=== PATIENT | female | born 1995 | race Caucasian/White ===

== ENCOUNTER → 2020-02-18 11:50 | Outpatient (CLI) | payer OTHER, SELFPAY ==
[2020-02-19 22:06] LABS: COVID19 Sendout Not Detected (Not Detect)
== END ==
PROVIDERS: Visit Provider Physician Assistant
DX: Z11.59 Encounter for screening for other viral diseases (principal)
CPT/HCPCS: 87635

== ENCOUNTER 2020-02-21 10:18 | Day surgery (SDC) | payer OTHER, SELFPAY ==
--- NOTE | 2020-02-21 | PATH_ITS ---
[facility] Accession Number: [id number] . 01 Material submitted: . PART A: small bowel - SMALL BOWEL BX PART B: gastrointestinal site - GASTRIC BX . 02 Diagnosis: A. Small Bowel, Biopsy: Duodenal mucosa with no diagnostic abnormality. Negative for active inflammation, features of sprue, dysplasia, or malignancy. . B. Stomach, Biopsies: Antral mucosa with mild chronic gastritis. Negative for Helicobacter by immunohistochemistry. Negative for intestinal metaplasia. Negative for dysplasia and malignancy. MRV 02/26/2020 1422 Local . 02 Electronically signed: . Regina Soriano MD, Pathologist NPI- [id number] . 01 Gross description: . Part A: SMALL BOWEL BX: Received in formalin are 3 fragment(s) of [place], soft tissue measuring 0.3 x 0.2 x 0.2 cm to 0.2 x 0.2 x 0.2 cm submitted entirely in 1 cassette(s) Part B: GASTRIC BX: Received in formalin are 3 fragment(s) of [place], soft tissue measuring 0.4 x 0.2 x 0.1 cm to 0.1 x 0.1 x 0.1 cm submitted entirely in 1 cassette(s) /QBJ 02/22/2020 0256 Local . 02 Microscopic: . B. An immunohistochemical stain was performed to evaluate for Helicobacter organisms and is negative. The control stain showed appropriate reactivity. . * This test was developed and its performance characteristics determined by [employer]. It has not been cleared or approved by the [place]. Food and Drug Administration. The FDA has determined that such clearance or approval is not necessary. This test is used for clinical purposes. It should not be regarded as investigational or for research. . 02 Pathologist provided ICD-10: R10.9 . 02 CPT . 960862, 846708, [id number] Performed at: 01 [facility] [address] [place] [address], [place], [place] [id number] MD Clay Maki MD Phone: [phone] Performed at: 02 [facility] [address] [place], [place] [id number] MD Regina Soriano MD Phone: [phone]
[2020-02-21 11:25] VITALS: BMI 28.1
[2020-02-21] MEDS: SODIUM CHLORIDE 0.9% 1,000 ML 70 ML IV (11:25)
--- NOTE | 2020-02-21 11:26 | PM.HP.1 ---
History of Present Illness History of Present Illness Date Patient Seen: 02/21/20 Time Patient Seen: 11:27 Chief complaint: EGD W/POSS BX Narrative: Patient is a 24 year old female who presented for EGD. Last seen 02/01/2020. Denies changes to symptoms, medications or history since that time. Review of Systems Review of Systems ROS: Yes All systems reviewed with the patient and are negative except as otherwise documented Exam Const General: cooperative, healthy appearing, comfortable, well developed, well groomed and No acute distress Orientation: alert and awake HENGA Head: normocephalic and atraumatic Resp Effort & Inspection: normal respiratory effort and able to speak in complete sentences Auscultation: clear to auscultation bilaterally Cardio Rate: regular rate Rhythm: regular rhythm Heart Sounds: S1 normal and S2 normal GI Palpation: soft Auscultation: normal bowel sounds Extrem Right lower extremity: no edema Left lower extremity: no edema Assessment & Plan Assessment & Plan narrative: 1. Early satiety 2. Bloating 3. Abdominal pain 4. Nausea - EGD today, further recommendations to follow
[2020-02-21 11:31] VITALS: BP 122/72; PULSE 88; RESP 14; TEMP 36.9; O2SAT 99
[2020-02-21] MEDS: LIDOCAINE 4% SOLN 50 ML 20 ML TOP (11:40)
[2020-02-21] MEDS: MIDAZOLAM 5 MG/5 ML VIAL IV ×3 (11:41→11:48)
[2020-02-21] MEDS: fentaNYL 250 MCG/5 ML INJ IV ×2 (11:42→11:45)
--- NOTE | 2020-02-21 11:54 | PM.OP.ENDO ---
Operative Date/Time/Diagnoses Date of procedure: 02/21/20 Time of procedure: 11:42 Procedure Notes Procedure in detail: Surgeon: Cherie Juarez DO Procedure: Esophagogastroduodenoscopy with with biopsy Preoperative diagnosis: 1. Early satiety 2. Abdominal bloating 3. Abdominal pain 4. Nausea Postoperative diagnosis: 1. Small hiatal hernia 2. Rule out H pylori 3. Rule out celiac sprue Medications: Conscious sedation using 7 mg IV of Midazolam and 125_ mcg IV of Fentanyl Preanesthesia Assessment An H and P was performed/updated and the Px?s ASA class is 1. The procedure was discussed in detail with the patient. The potential risks and complications including infection, bleeding, missed lesions, perforation, need for surgery in case of perforation, prolonged hospital stay, and were explained. A brief question and answer period was allotted and once all questions were answered, informed consent was obtained. The patient was brought back to the procedure room and placed on standard monitoring. The patient?s vital signs were monitored continuously throughout the entire procedure. Prior to starting, a timeout was performed to confirm the patient?s identity, allergies, medications, and procedure. Procedure in detail The patient was placed in left lateral decubitus position and a bite block was inserted. The tip of the upper endoscope was placed into the mouth and advanced without difficulty under direct visualization into the esophagus. Esophagus: Normal-appearing Stomach: Small sliding hiatal hernia Normal-appearing gastric mucosa -biopsy rule out H pylori Duodenum: No gross lesions, entire examined duodenum -biopsy rule out celiac sprue The patient tolerated the procedure well and will be brought back to the recovery area to be discharged once criteria are met. The total physician intraservice time was 12min. Complications There were no complications and estimated blood loss was minimal. Recommendations: Resume previous diet Continue outPx medications Follow up pathology results Office follow up to be scheduled in next 2-4 weeks An emergency contact number was given to the patient for any complications related to the procedure
[2020-02-21 12:10] VITALS: BP 109/73; PULSE 113; RESP 20; TEMP 36.9; O2SAT 96
[2020-02-21 12:11] VITALS: BP 101/62; PULSE 109; RESP 22; O2SAT 97
--- NOTE | 2020-02-21 13:02 | SUR.PHASEI ---
Pt was in Pacu phase 1 at 1127 am and Anesthesia end was 1127 also
[2020-02-21 13:05] VITALS: BP 100/68; PULSE 65; RESP 16; TEMP 37; O2SAT 100
== END 2020-02-21 13:08 | disposition home or self-care (01) ==
PROVIDERS: PCP Registered Nurse Diabetes Educator; Referring Provider Registered Nurse Diabetes Educator; Visit Provider Student in an Organized Health Care Education/Training Program
PROC: 0DJ08ZZ Inspection of Upper Intestinal Tract, Via Natural or Artificial Opening Endoscopic (ICD-10-PCS; CPT 43235; principal; 2020-02-21 12:30)
DX: K29.50 Unspecified chronic gastritis without bleeding (principal); K44.9 Diaphragmatic hernia without obstruction or gangrene
CPT/HCPCS: 43239; J2250; J3010

== ENCOUNTER → 2020-04-03 07:47 | Outpatient (CLI) | payer OTHER, SELFPAY ==
--- NOTE | 2020-04-03 | DI.NM.S_ITS ---
PROCEDURE: NM GASTRIC EMPTYING STUDY RADIOPHARMACEUTICAL: 1.0 mCi Tc-99m sulfur colloid in an egg sandwich. INDICATIONS: Early satiety,Upper abdominal pain, unspecified TECHNIQUE: A Tc-99m labeled sulfur colloid labeled egg sandwich or oatmeal was served to the patient. Anterior and posterior planar images of the abdomen were obtained at 0 minutes and 30 minutes, then at hourly intervals up to 4 hours. The patient was upright and ambulating during the interval. COMPARISON: None. FINDINGS: The stomach has normal size, morphology, and position. There is normal emptying of solid gastric contents from the stomach by visual inspection. No gastroesophageal reflux is visualized. The percentage of tracer retained at specific time points are as follows: Time point Percent gastric retention Normal range 30 minutes 95% 70% or more 1 hour 60% 30% to 90% 2 hours 20% 60% or less 3 hours 13% 30% or less 4 hours 1% 10% or less IMPRESSION: Normal nuclear medicine gastric emptying study with no evidence of gastric outlet obstruction or gastroparesis Dictated by: Ulysses Norris M.D. on 04/03/2020 at 14:33 Approved by: Ulysses Norris M.D. on 04/03/2020 at 14:34
== END ==
PROVIDERS: PCP Internal Medicine; Referring Provider Internal Medicine; Visit Provider Student in an Organized Health Care Education/Training Program
DX: R68.81 Early satiety (principal); R10.10 Upper abdominal pain, unspecified
CPT/HCPCS: 78264; A9541